=== PATIENT | female | born 1960 | race African-American/Black ===

== ENCOUNTER 2019-06-02 11:38 | Emergency (ER) | payer OTHER ==
[~2019-06-02] VITALS: Ht 154.9 cm; Wt 88.5 kg
[~2019-06-02 11:38] MED LIST: AMBIEN 10 MG TA10 MG PO; AMITRIPTYLINE H75 M1 PO; CLONIDINE PO; CYMBALTA60 MG PO; DICLOFENAC SODI75 MG PO; LYRICA225 MG PO; MS CONTIN 30 MG30 MG PO; ZIAC 5-6.25 MG1 EACH PO
[2019-06-02 12:20] LABS: ABSOLUTE NEUTROPHILS 4.2 thou/uL (1.4-8.2); BASOPHILS 0.2 % (0.0-2.0); EOSINOPHILS 1.5 % (0.0-3.0); HEMATOCRIT 38.3 % (37.0-47.0); HEMOGLOBIN 12.4 gm/dL (12.0-15.0); LYMPHOCYTES 22.4 % (24.0-44.0); MCH 27.6 pg (26.0-34.0); MCHC 32.4 g/dL (28.0-37.0); MCV 85.4 fL (80.0-100.0); PLATELET COUNT 181 thou/uL (150-400); POLYS 68.9 % (36.0-66.0); RBC 4.49 mil/uL (4.20-5.00); RDW 13.3 % (10.5-14.5); WBC 6.1 thou/uL (4.0-11.0)
[2019-06-02 12:32] LABS: CREATININE 0.9 mg/dL (0.6-1.0); POTASSIUM 3.6 mmol/L (3.5-5.1)
[2019-06-02 12:38] LABS: ALBUMIN 3.3 g/dL (3.4-5.0); TOTAL BILIRUBIN 0.3 mg/dL (<0.1-1.0); TOTAL PROTEIN 6.7 g/dL (6.4-8.2)
--- NOTE | 2019-06-02 14:19 | EKG ---
[facility] [place] [address] ELECTROCARDIOGRAM REPORT Name: SHINE MIR Room #: REG [facility]#: [id number] Admission: 06/02/19 Attend Phys: Discharge: Date of : 58 Report #: [id number] THIS REPORT FOR: cc: FAM - Family physician unknown Physician not on staff Brenden Powell MD ~ THIS REPORT FOR: //name// [facility] ED Test Date: 2019-06-02 Test Time: 11:48:10 Pat Name: SHINE MIR Department: Room: Gender: F [employer]: [place] : 1960 Requested By: Debbie Membreno Order Number: [id number] MD: Brenden Powell Measurements Intervals [place] Rate: 83 P: 43 CT: 201 QRS: -4 QRSD: 102 T: 40 QT: 391 QTc: 460 Interpretive Statements Sinus rhythm Inferior infarct, old Baseline wander in lead(s) V2 Compared to ECG 08/10/2009 05:09:05 Myocardial infarct finding now present First degree AV block no longer present Electronically Signed On 06-02-2019 14:18:50 CDT by Brenden Powell [email or web address] <ELECTRONICALLY SIGNED> By: Brenden Powell MD 06/02/19 1418 [id number] Brenden Powell MD /EPI
[2019-06-02 14:54] LABS: URINE BILIRUBIN NEGATIVE (Negative); URINE BLOOD TRACE (Negative); URINE CLARITY CLEAR; URINE COLOR YELLOW; URINE GLUCOSE-RANDOM* NEGATIVE (Negative); URINE KETONES NEGATIVE (Negative); URINE LEUKOCYTES-REFLEX NEGATIVE (Negative); URINE NITRITE-REFLEX NEGATIVE (Negative); URINE PROTEIN (DIPSTICK) NEGATIVE (Negative)
[2019-06-02] MEDS ORDERED: BUTALB-APAP-CA1 EACH PO (15:46)
[2019-06-02 16:03] VITALS: BP 146/85
== END 2019-06-02 16:04 | disposition home or self-care (01) ==
LOC: ER 11:38
PROVIDERS: Emergency Medicine; Physician Assistant
DX: G43.909 Migraine, unspecified, not intractable, without status migrainosus (principal); R42 Dizziness and giddiness; I10 Essential (primary) hypertension